=== PATIENT | male | born 1955 | race Caucasian/White ===

== ENCOUNTER 2021-10-31 01:52 | Emergency (ER) | payer OTHER ==
[~2021-10-31] VITALS: Ht 167.6 cm; Wt 72.6 kg
[2021-10-31] MEDS ORDERED: HYDACE10B PO (04:59)
== END 2021-10-31 04:55 | disposition home or self-care (01) ==
LOC: ER 01:52
DX: S00.12XA Contusion of left eyelid and periocular area, initial encounter (principal); Y04.2XXA Assault by strike against or bumped into by another person, initial encounter
CPT/HCPCS: 99283

== ENCOUNTER 2022-07-30 09:31 | Emergency (ER) | payer MEDICARE, OTHER ==
[~2022-07-30] VITALS: Ht 165.1 cm; Wt 72.6 kg
[~2022-07-30 09:31] MED LIST: HYDACE10B PO
== END 2022-07-30 11:39 | disposition home or self-care (01) ==
LOC: ER 09:31
DX: S41.112A Laceration without foreign body of left upper arm, initial encounter (principal); F17.200 Nicotine dependence, unspecified, uncomplicated; W29.8XXA Contact with other powered hand tools and household machinery, initial encounter
CPT/HCPCS: 12002; 90471; 90714; 99282-25

== ENCOUNTER 2023-11-19 08:03 | Observation (INO) | payer MEDICARE, OTHER ==
[~2023-11-19] VITALS: Ht 167.6 cm; Wt 66.0 kg
[2023-11-19 09:17] LABS: BASOPHILS ABSOLUTE AUTO 0.04 K/mm3 (0.00-0.23); BASOPHILS PERCENT AUTO 1 % (0-2); EOSINOPHILS PERCENT AUTO 4 % (0-6); Hematocrit 46.4 % (37.0-53.0); Hemoglobin 15.4 g/dL (13.5-17.5); IMMATURE GRAN ABSOLUTE AUTO 0.03 K/mm3 (0.00-0.10); IMMATURE GRAN PERCENT AUTO 0 % (0-1); LYMPHOCYTES ABSOLUTE AUTO 1.97 K/mm3 (0.84-5.20); LYMPHOCYTES PERCENT AUTO 24 % (21-46); MONOCYTES PERCENT AUTO 6 % (4-13); Mean Corpuscular HGB 32.6 pg (26.0-34.0); Mean Corpuscular HGB Conc 33.2 g/dL (31.5-36.5); Mean Corpuscular Volume 98 fL (80-100); Mean Platelet Volume 9.2 fL (9.1-12.4); NEUTROPHILS ABSOLUTE AUTO 5.34 K/mm3 (1.96-9.15); NEUTROPHILS PERCENT AUTO 65 % (41-73); Platelet Count 274 K/mm3 (150-400); RDW Coefficient Variation 13.8 % (11.7-14.2); RDW Standard Deviation 49.6 fL (35.1-46.3); Red Blood Cell Count 4.72 M/mm3 (4.30-5.90); White Blood Cell Count 8.18 K/mm3 (4.00-11.30)
[2023-11-19 09:34] LABS: Albumin, Blood 3.3 g/dL (3.4-5.0); Albumin/Globulin Ratio 0.9 (0.8-1.8); Bilirubin, Total 0.5 mg/dL (0.1-1.0); Bun/Creatinine Ratio 13.9 (12.0-20.0); Calcium, Blood 8.9 mg/dL (8.5-10.1); Creatinine, Blood 0.87 mg/dL (0.60-1.20); Globulin, Blood 3.7 g/dL (2.2-4.0)
[2023-11-19] MEDS ORDERED: Ondansetron HCl 2 MG / ML 2ML Vial IV PRN (12:25)
[2023-11-19] MEDS ORDERED: Aspirin 81 MG Chew PO SCH (13:00)
[2023-11-19 14:33] VITALS: BP 131/79
[2023-11-19] MEDS ORDERED: CENTRUM SILVER1 EAC2 PO (15:14)
--- NOTE | 2023-11-19 16:41 | NUR ---
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 COOPERATIVE TO CARE, CALL LIGHT WITH IN REACH, WILL RELAY TO PM RN
--- NOTE | 2023-11-19 18:08 | NUR ---
PATIENT LEFT AMA, AMA PAPERWORK SIGNED, DR WHIPPLE AND NURSING POSTING SPECIALIST AWARE, PATIENT EDUCATED ON THE RISK OF LEAVING AMA
[2023-11-19] MEDS ORDERED: Atorvastatin 40 MG Tab PO SCH (21:00)
[2023-11-20] MEDS ORDERED: Enoxaparin 40 MG/0.4 ML SYR SC SCH (09:00)
== END 2023-11-19 18:06 | disposition left against medical advice (07) ==
LOC: ER 08:03 → MEDS 08:04
PROVIDERS: Physician Assistant; ADMIT Internal Medicine
DX: I63.9 Cerebral infarction, unspecified (principal); I10 Essential (primary) hypertension; F17.210 Nicotine dependence, cigarettes, uncomplicated; F10.90 Alcohol use, unspecified, uncomplicated; Z53.29 Procedure and treatment not carried out because of patient's decision for other reasons
CPT/HCPCS: 70450; 70551; 80053; 83735; 85025; 93005; 93010; 93306; 93880; 99285-25; A9270; G0378